=== PATIENT | male | born 1995 | race Caucasian/White ===

== ENCOUNTER 2018-01-10 15:19 | Emergency (ER) | payer OTHER ==
[2018-01-10 16:01] VITALS: BP 132/72
--- NOTE | 2018-01-10 16:12 | EDPHY ---
H & P Time Seen by Provider: 01/10/18 15:41 HPI/ROS: CHIEF COMPLAINT: Neck injury HISTORY OF PRESENT ILLNESS: Patient is a 22-year-old male presents emergency department after injuries neck while playing rugby. The patient states he sustained a "late hit." Patient was struck by shoulder in the back of his neck. He now has midline low C-spine pain. His pain is moderate. He denies any numbness or tingling. No loss consciousness. No previous C-spine injury. REVIEW OF SYSTEMS: 10 systems were reveiwed and are negative with the exception of the elements mentioned in the history of present illness. Past Medical/Surgical History: Denies previous neck injury Past surgical history: Denies previous cervical surgery. Smoking Status: Former smoker Physical Exam: Vitals noted General Appearance: Alert and no distress. Head: Pupils equal. Normal. Cervical spine: Mild lower cervical spine tenderness to palpation at midline. No crepitus or deformity. Respiratory: No respiratory distress. Cardiac: regular rate and rhythm. Back: No tenderness palpation. Extremities: Full range of motion, normal appearing. Skin: No rashes or lesions. Neuro: Alert. Normal mood and affect. Constitutional: Initial Vital Signs Temperature (C) 37.2 C 01/10/18 15:24 Heart Rate 91 01/10/18 15:24 Respiratory Rate 18 01/10/18 15:24 Blood Pressure 137/85 H 01/10/18 15:24 O2 Sat (%) 94 01/10/18 15:24 O2 Delivery Mode Room Air Allergies/Adverse Reactions: No Known Allergies Allergy (Unverified 01/10/18 15:23) Home Medications: Medication Instructions Recorded NK [No Known Home Meds] 01/10/18 Medical Decision Making ED Course/Re-evaluation: In the emergency department I discussed possible etiologies with the patient. I answered all his questions. Patient consented to his C-spine CT. CT cervical spine: Please refer the dictated report. No acute disease noted. I discussed the results with the patient. I answered all his questions. C- collar was removed. He was given warnings prior to leaving. Will return with worsening symptoms. Differential Diagnosis: My differential includes but not limited to cervical spine injury, dislocation, fracture, ligamentous injury, disc herniation, hematoma Departure - Departure Disposition: Home, Routine, Self-Care Clinical Impression: Cervical strain, acute Qualifiers: Encounter type: initial encounter Qualified Code(s): S16.1XXA - Strain of muscle, fascia and tendon at neck level, initial encounter Condition: Good Instructions: Cervical Strain (ED) Additional Instructions: Return with increasing pain, weakness, numbness or any other concerns. Referrals: Micheal Rincon MD [Medical Doctor] - 3-4 days, if not improved
--- NOTE | 2018-01-10 16:32 | ASMTCAGE ---
CAGE Do you feel you ought to Answers: No cut down on your drinking or drug use? Do people annoy you by Answers: No criticizing your drinking or drug use? Do you feel guilty about Answers: No your drinking or drug use? Do you drink or use drugs Answers: No first thing in the morning ([employer])? Additional Comments Pt reports only drinking once per week. Pt was injured playing rugby and denies alcohol/drug use prior to or during game. No resources indicated at this time. Date Signed: 01/10/2018 04:31 PM Electronically Signed By:Toyin Pena RN
--- NOTE | 2018-01-10 16:41 | ASMTCMCOM ---
CM Note CM Note Notes: Pt presented to the Emergency Department s/p a neck injury while playing rugby. Pt is a prior smoker. Met with pt secondary to SBIRT trigger. Pt reports drinking approximately 6 drinks once per week. CAGE completed. Pt denies need for resources at this time. Pt denies alcohol or drug use prior to or during rugby game. Pt reports having friends who can assist him with a ride home. Pt denies needs at this time. CM available for any further issues or concerns. Date Signed: 01/10/2018 04:41 PM Electronically Signed By:Toyin Pena RN
== END 2018-01-10 17:27 | disposition home or self-care (01) ==
DX: S16.1XXA Strain of muscle, fascia and tendon at neck level, initial encounter (principal); W50.0XXA Accidental hit or strike by another person, initial encounter; Y92.328 Other athletic field as the place of occurrence of the external cause; Y93.63 Activity, rugby